=== PATIENT | male | born 1935 | race Caucasian/White ===

== ENCOUNTER 2017-06-07 13:43 | Inpatient (IN) | payer MEDICARE, OTHER ==
[~2017-06-07] VITALS: Ht 177.8 cm; Wt 104.6 kg
[~2017-06-07 13:43] MED LIST: CLOP75TA35 PO; FISH1200 PO; ISOS120T8 PO; MAGN250T29 PO; MULT-785 PO; OLME1TAB19 PO; PYRI50TA10 PO; RANI150C11 PO; UBID100C16 PO; ZOC40T PO
[2017-06-07 14:26] LABS: BASOPHILS % (AUTO) 0.4 % (0-1); EOSINOPHILS # (AUTO) 0.7 X10'3 (0-0.9); EOSINOPHILS % (AUTO) 7.1 % (0-6); HEMATOCRIT 40.3 % (42.0-52.0); LYMPHOCYTES # (AUTO) 1.7 X10'3 (1.1-4.8); LYMPHOCYTES % (AUTO) 18.3 % (21-51); MEAN CORPUSCULAR HEMOGLOBIN 30.7 PG (27.0-31.0); MEAN CORPUSCULAR HGB CONC 34.7 % (33.0-36.5); MEAN CORPUSCULAR VOLUME 88.4 FL (78-98); MEAN PLATELET VOLUME 6.8 FL (7.4-10.4); MONOCYTES # (AUTO) 0.7 X10'3 (0-0.9); MONOCYTES % (AUTO) 7.2 % (2-12); NEUTROPHILS # (AUTO) 6.2 X10'3 (1.8-7.7); PLATELET COUNT 292 X10'3 (140-440); RED BLOOD COUNT 4.56 X10'6 (4.70-6.10); RED CELL DISTRIBUTION WIDTH 12.9 % (11.5-14.5); WHITE BLOOD COUNT 9.3 X10'3 (4.5-11.0)
[2017-06-07 14:31] LABS: INR 0.9 INR; PROTHROMBIN TIME 9.8 SECONDS (9.0-12.0)
[2017-06-07 14:37] LABS: ALANINE AMINOTRANSFERASE 34 U/L (12-78); ALBUMIN 3.6 G/DL (3.4-5.0); ALKALINE PHOSPHATASE 64 IU/L (46-116); ANION GAP 7 (8-16); ASPARTATE AMINO TRANSFERASE 15 U/L (10-37); BILIRUBIN,TOTAL 0.4 MG/DL (0.1-1.0); BLOOD UREA NITROGEN 20 MG/DL (7-18); BUN/CREATININE RATIO 16.9 (5.4-32.0); CALCIUM 8.6 MG/DL (8.5-10.1); CHLORIDE 105 MMOL/L (99-107); CREATININE 1.18 MG/DL (0.60-1.10); POTASSIUM 4.1 MMOL/L (3.5-5.1); SODIUM 144 MMOL/L (135-145); TOTAL CARBON DIOXIDE 31.8 MMOL/L (24-32); TOTAL PROTEIN 7.2 G/DL (6.4-8.2); eGFR 59 ML/MIN
[2017-06-07 14:42] LABS: GLUCOSE 114 MG/DL (70-104)
[2017-06-07] MEDS ORDERED: famotidine/PF 10 mg/ml inj IV ONE (17:00)
[2017-06-07] MEDS ORDERED: pantoprazole 40 MG vial IV ONE (17:00)
[2017-06-07] MEDS ORDERED: magnesium 4gm in 100ml NS 100 ML IV PRN (17:15)
[2017-06-07] MEDS ORDERED: ondansetron/PF 4mg/2ml inj IV PRN (17:15)
[2017-06-07] MEDS ORDERED: HYDROcodone/acetaminophen 5mg/325mg tablet PO PRN (17:15)
[2017-06-07] MEDS ORDERED: magnesium 2GM in 50ml NS 50 ML IV PRN (17:15)
[2017-06-07] MEDS ORDERED: bisacodyl 10mg suppository rectal RC PRN (17:15)
[2017-06-07] MEDS ORDERED: acetaminophen 650mg rectal suppository RC PRN (17:15)
[2017-06-07] MEDS ORDERED: potassium Cl 40MEQ/NS 500ml 500 ML IV PRN ×2 (17:15)
[2017-06-07] MEDS ORDERED: HYDROcodone/acetaminophen 10/325mg tab PO PRN (17:15)
[2017-06-07] MEDS ORDERED: EZET10TA26 PO (18:28)
[2017-06-07] MEDS: pantoprazole 40MG/NS 100ML BAG 100 ML IV SCH (19:54)
[2017-06-07] MEDS: normal saline 1000ml 1,000 ML IV SCH (19:54)
[2017-06-07 20:00] VITALS: BP 129/53
[2017-06-07] MEDS ORDERED: pantoprazole 40MG/NS 100ML BAG 100 ML IV SCH (21:00)
[2017-06-08] VITALS (13 sets, daily range): BP systolic 109–161; BP diastolic 51–83
[2017-06-08] MEDS: pantoprazole 40MG/NS 100ML BAG 100 ML IV SCH ×3 (00:58→11:00)
[2017-06-08 05:21] LABS: BASOPHILS # (AUTO) 0.1 X10'3 (0-0.2); BASOPHILS % (AUTO) 0.6 % (0-1); EOSINOPHILS # (AUTO) 0.7 X10'3 (0-0.9); HEMATOCRIT 35.2 % (42.0-52.0); HEMOGLOBIN 12.6 g/dl (14.0-17.9); LYMPHOCYTES # (AUTO) 1.9 X10'3 (1.1-4.8); LYMPHOCYTES % (AUTO) 22.1 % (21-51); MEAN CORPUSCULAR HEMOGLOBIN 32.9 PG (27.0-31.0); MEAN CORPUSCULAR HGB CONC 35.9 % (33.0-36.5); MEAN CORPUSCULAR VOLUME 91.6 FL (78-98); MONOCYTES # (AUTO) 0.7 X10'3 (0-0.9); MONOCYTES % (AUTO) 7.9 % (2-12); NEUTROPHILS # (AUTO) 5.4 X10'3 (1.8-7.7); NEUTROPHILS % (AUTO) 61.4 % (42-75); PLATELET COUNT 254 X10'3 (140-440); RED BLOOD COUNT 3.84 X10'6 (4.70-6.10); RED CELL DISTRIBUTION WIDTH 13.1 % (11.5-14.5); WHITE BLOOD COUNT 8.8 X10'3 (4.5-11.0)
[2017-06-08] MEDS: normal saline 1000ml 1,000 ML IV SCH ×2 (05:58→15:45)
[2017-06-08 06:01] LABS: ALANINE AMINOTRANSFERASE 34 U/L (12-78); ALBUMIN/GLOBULIN RATIO 0.9 (1.1-1.5); ALKALINE PHOSPHATASE 53 IU/L (46-116); ANION GAP 9 (8-16); ASPARTATE AMINO TRANSFERASE 21 U/L (10-37); BILIRUBIN,TOTAL 0.4 MG/DL (0.1-1.0); BLOOD UREA NITROGEN 19 MG/DL (7-18); BUN/CREATININE RATIO 15.8 (5.4-32.0); CALCIUM 8.2 MG/DL (8.5-10.1); CHLORIDE 108 MMOL/L (99-107); CHOL/HDL RATIO 3.6 (0.00-4.99); CHOLESTEROL 128 MG/DL (0-200); GLUCOSE 104 MG/DL (70-104); HDL CHOLESTEROL 36 MG/DL (35-60); LDL CHOLESTEROL 67 MG/DL (50-100); MAGNESIUM 2.2 MG/DL (1.5-2.4); POTASSIUM 4.5 MMOL/L (3.5-5.1); SODIUM 145 MMOL/L (135-145); TOTAL CARBON DIOXIDE 27.7 MMOL/L (24-32); TOTAL PROTEIN 6.2 G/DL (6.4-8.2); TRIGLYCERIDES 162 MG/DL (20-135); eGFR 58 ML/MIN
[2017-06-08 06:50] LABS: OCCULT BLOOD STOOL POSITIVE (Neg)
[2017-06-08] MEDS ORDERED: K and/or MAG REPLACEMENT MC SCH (08:00)
[2017-06-08] MEDS ORDERED: normal saline 1000ml 1,000 ML IV SCH (11:34)
[2017-06-08] MEDS ORDERED: fentaNYL/PF 50MCG/1 ML 2ML syringe IV PRN (11:35)
[2017-06-08] MEDS ORDERED: LIDOcaine Viscous 15ml cup PO ONE (11:35)
[2017-06-08] MEDS ORDERED: MIDAZolam 1mg/ml 10ml vial IV PRN (11:35)
[2017-06-08] MEDS ORDERED: simethicone 40mg/0.6ml oral drops 30ml MC ONE (11:35)
[2017-06-08] MEDS ORDERED: fentaNYL/PF 50MCG/1 ML 2ML syringe ONE (12:09)
[2017-06-08] MEDS ORDERED: MIDAZolam 1mg/ml 10ml vial ONE (12:09)
[2017-06-08] MEDS ORDERED: LIDOcaine Viscous 15ml cup ONE (12:09)
[2017-06-08] MEDS ORDERED: PANT-47 PO (16:17)
== END 2017-06-08 17:00 | disposition home or self-care (01) | DRG 379 ==
LOC: ER 13:43 → ED HOLD 17:22 → SUR 3N 18:59
PROVIDERS: ADMIT Family Medicine; ATTEND Family Medicine
PROC: 0DB68ZX Excision of Stomach, Via Natural or Artificial Opening Endoscopic, Diagnostic (ICD-10-PCS; principal; 2017-06-08)
DX: K29.71 Gastritis, unspecified, with bleeding (principal); E66.9 Obesity, unspecified; E78.00 Pure hypercholesterolemia, unspecified; K25.4 Chronic or unspecified gastric ulcer with hemorrhage; E78.5 Hyperlipidemia, unspecified; I10 Essential (primary) hypertension; M19.90 Unspecified osteoarthritis, unspecified site; I25.10 Atherosclerotic heart disease of native coronary artery without angina pectoris; K29.80 Duodenitis without bleeding; K20.9 Esophagitis, unspecified; K31.4 Gastric diverticulum; K57.90 Diverticulosis of intestine, part unspecified, without perforation or abscess without bleeding; Z96.653 Presence of artificial knee joint, bilateral; Z95.5 Presence of coronary angioplasty implant and graft; Z90.49 Acquired absence of other specified parts of digestive tract; Z79.899 Other long term (current) drug therapy; Z88.2 Allergy status to sulfonamides; Z88.8 Allergy status to other drugs, medicaments and biological substances; Z87.11 Personal history of peptic ulcer disease; Z87.891 Personal history of nicotine dependence; Z80.8 Family history of malignant neoplasm of other organs or systems; Z68.33 Body mass index [BMI] 33.0-33.9, adult
CPT/HCPCS: 36415; 43239; 74176; 80053; 80061; 82272; 83735; 85025; 85610; 87070; 99285; A4620; C9113; G0500; J2250; J3010; J3490; J7030

== ENCOUNTER 2018-05-22 07:28 | Day surgery (SDC) | payer MEDICARE, OTHER ==
[~2018-05-22] VITALS: Ht 177.8 cm; Wt 107.5 kg
[~2018-05-22 07:28] MED LIST changes: -CLOP75TA35 PO; +EZET10TA26 PO; -FISH1200 PO; +HYDR-4383 PO; -ISOS120T8 PO; -MAGN250T29 PO; -MULT-785 PO; -OLME1TAB19 PO; +OLME1TAB42 PO; +OMEG-166 PO; -PYRI50TA10 PO; -RANI150C11 PO; -UBID100C16 PO
[2018-05-22 07:51] VITALS: BP 123/74
[2018-05-22] MEDS ORDERED: normal saline 1000ml 1,000 ML IV SCH (08:00)
[2018-05-22] MEDS ORDERED: MAGNESIUM (08:09)
[2018-05-22] MEDS ORDERED: CO Q-10 (08:09)
[2018-05-22] MEDS ORDERED: MULTIVITAMIN (08:09)
[2018-05-22] MEDS ORDERED: benicar (08:09)
[2018-05-22] MEDS ORDERED: zetia (08:09)
[2018-05-22] MEDS ORDERED: vitamin d3 (08:09)
[2018-05-22] MEDS ORDERED: VITAMIN B12 (08:09)
[2018-05-22] MEDS ORDERED: midazolam 2 mg/2 ml injection IV PRN (08:50)
[2018-05-22] MEDS ORDERED: LIDOcaine 1%/PF 5ML 10 MG/ML VIAL SQ ONE (08:50)
[2018-05-22] MEDS ORDERED: heparin 1,000 UNITS/NS 500ml 500 ML ICATH ONE (08:50)
[2018-05-22] MEDS ORDERED: fentaNYL/PF 50MCG/1 ML 2ML syringe IV PRN (08:50)
[2018-05-22 09:03] LABS: BASOPHILS # (AUTO) 0.2 X10'3 (0-0.2); BASOPHILS % (AUTO) 2.3 % (0-1); EOSINOPHILS # (AUTO) 0.7 X10'3 (0-0.9); EOSINOPHILS % (AUTO) 8.8 % (0-6); HEMATOCRIT 42.4 % (42.0-52.0); HEMOGLOBIN 14.6 g/dl (14.0-17.9); LYMPHOCYTES % (AUTO) 24.6 % (21-51); MEAN CORPUSCULAR HEMOGLOBIN 30.9 PG (27.0-31.0); MEAN CORPUSCULAR HGB CONC 34.4 % (33.0-36.5); MEAN CORPUSCULAR VOLUME 89.8 FL (78-98); MEAN PLATELET VOLUME 7.1 FL (7.4-10.4); MONOCYTES # (AUTO) 0.7 X10'3 (0-0.9); MONOCYTES % (AUTO) 8.3 % (2-12); NEUTROPHILS # (AUTO) 4.4 X10'3 (1.8-7.7); PLATELET COUNT 235 X10'3 (140-440); RED BLOOD COUNT 4.72 X10'6 (4.70-6.10); RED CELL DISTRIBUTION WIDTH 13.1 % (11.5-14.5); WHITE BLOOD COUNT 7.9 X10'3 (4.5-11.0)
[2018-05-22 09:12] LABS: ALBUMIN 3.9 G/DL (3.4-5.0); ANION GAP 11 (8-16); BLOOD UREA NITROGEN 32 MG/DL (7-18); CALCIUM 8.8 MG/DL (8.5-10.1); CHLORIDE 105 MMOL/L (99-107); CREATININE 1.23 MG/DL (0.60-1.10); GLUCOSE 111 MG/DL (70-104); POTASSIUM 4.3 MMOL/L (3.5-5.1); SODIUM 142 MMOL/L (135-145); TOTAL CARBON DIOXIDE 25.7 MMOL/L (24-32); eGFR 56 ML/MIN
[2018-05-22 09:35] LABS: INR 0.9 INR; PROTHROMBIN TIME 9.4 SECONDS (9.0-12.0)
== END 2018-05-22 09:10 | disposition home or self-care (01) ==
LOC: SSTAY O 07:28
PROVIDERS: ATTEND Radiology Diagnostic Radiology
DX: I70.211 Atherosclerosis of native arteries of extremities with intermittent claudication, right leg (principal); Z53.8 Procedure and treatment not carried out for other reasons; I10 Essential (primary) hypertension; E78.5 Hyperlipidemia, unspecified; I25.10 Atherosclerotic heart disease of native coronary artery without angina pectoris; K21.9 Gastro-esophageal reflux disease without esophagitis; M19.90 Unspecified osteoarthritis, unspecified site; N40.0 Benign prostatic hyperplasia without lower urinary tract symptoms; H91.8X3 Other specified hearing loss, bilateral; Z98.41 Cataract extraction status, right eye; Z98.42 Cataract extraction status, left eye; Z87.11 Personal history of peptic ulcer disease; Z90.49 Acquired absence of other specified parts of digestive tract; Z95.5 Presence of coronary angioplasty implant and graft; Z79.01 Long term (current) use of anticoagulants; Z96.653 Presence of artificial knee joint, bilateral; Z87.891 Personal history of nicotine dependence; Z88.2 Allergy status to sulfonamides; Z79.891 Long term (current) use of opiate analgesic; Z79.82 Long term (current) use of aspirin; Z88.8 Allergy status to other drugs, medicaments and biological substances; Z98.890 Other specified postprocedural states; Z79.899 Other long term (current) drug therapy; Z82.0 Family history of epilepsy and other diseases of the nervous system; Z82.49 Family history of ischemic heart disease and other diseases of the circulatory system; Z80.8 Family history of malignant neoplasm of other organs or systems
CPT/HCPCS: 36415; 80048; 85025; 85610; J7030

== ENCOUNTER 2018-07-02 08:47 | Inpatient (IN) | payer MEDICARE, OTHER | END 2018-07-04 15:59 | disposition home or self-care (01) | LOC: PAS IN 08:47 → SUR 3N 07-03 14:17 → ICU 2S 16:01 | PROC: 041L0KL Bypass Left Femoral Artery to Popliteal Artery with Nonautologous Tissue Substitute, Open Approach (ICD-10-PCS; principal; 2018-07-02 11:31) | DX: I70.212 Atherosclerosis of native arteries of extremities with intermittent claudication, left leg (principal); Z95.5 Presence of coronary angioplasty implant and graft; Z96.653 Presence of artificial knee joint, bilateral ==

== ENCOUNTER 2021-01-25 05:56 | Day surgery (SDC) | payer MEDICARE, OTHER ==
[2021-01-23 12:48] LABS: BASOPHILS # (AUTO) 0.1 X10'3 (0-0.2); BASOPHILS % (AUTO) 0.6 % (0-1); EOSINOPHILS # (AUTO) 0.4 X10'3 (0-0.9); EOSINOPHILS % (AUTO) 4.6 % (0-6); HEMOGLOBIN 13.4 g/dl (14.0-17.9); LYMPHOCYTES # (AUTO) 1.8 X10'3 (1.1-4.8); LYMPHOCYTES % (AUTO) 19.5 % (21-51); MEAN CORPUSCULAR HEMOGLOBIN 31.1 PG (27.0-31.0); MEAN CORPUSCULAR HGB CONC 34.3 g/dL (33.0-36.5); MEAN CORPUSCULAR VOLUME 90.9 FL (78-98); MONOCYTES # (AUTO) 0.8 X10'3 (0-0.9); MONOCYTES % (AUTO) 8.6 % (2-12); NEUTROPHILS # (AUTO) 6.1 X10'3 (1.8-7.7); NEUTROPHILS % (AUTO) 66.7 % (42-75); PLATELET COUNT 208 X10'3 (140-440); RED BLOOD COUNT 4.29 X10'6 (4.70-6.10); WHITE BLOOD COUNT 9.2 X10'3 (4.5-11.0)
[2021-01-23 13:01] LABS: ANION GAP 8 (8-16); BLOOD UREA NITROGEN 30 MG/DL (7-18); BUN/CREATININE RATIO 23.8 (5.4-32.0); CALCIUM 8.9 MG/DL (8.5-10.1); CHLORIDE 106 MMOL/L (99-107); CREATININE 1.26 MG/DL (0.60-1.10); GLUCOSE 100 MG/DL (70-104); PARTIAL THROMBOPLASTIN TIME 26 SECONDS (22-32); POTASSIUM 4.4 MMOL/L (3.5-5.1); SODIUM 141 MMOL/L (135-145); TOTAL CARBON DIOXIDE 26.9 MMOL/L (24-32); eGFR 54 ML/MIN
[~2021-01-25] VITALS: Ht 177.8 cm; Wt 107.0 kg
[2021-01-25] VITALS (19 sets, daily range): BP systolic 99–182; BP diastolic 28–91
[~2021-01-25 05:56] MED LIST changes: +ASPI-1265 PO; +CO Q-10; -EZET10TA26 PO; +EZET10TA48 PO; -HYDR-4383 PO; +MAGNESIUM; +MULT-620 PO; +OLME1TAB21 PO; -OLME1TAB42 PO; +VITAMIN B12; +vitamin d3
[2021-01-25] MEDS ORDERED: LIDOcaine/PRILOcaine 5gm cream TP ONE (06:20)
[2021-01-25] MEDS ORDERED: normal saline 1,000 ML IV SCH (06:20)
[2021-01-25] MEDS ORDERED: LORazepam 0.5 MG tablet PO PRN (06:20)
[2021-01-25] MEDS ORDERED: diphenhydrAMINE 25mg capsule PO PRN (06:20)
[2021-01-25] MEDS ORDERED: acetylcysteine 200 MG/ml 4ml vial PO PRN (06:45)
[2021-01-25] MEDS ORDERED: sodium bicarbonate (8.4%) inj. 150 ML in dextrose 5%-water 1,000 ML IV ONE (06:45)
[2021-01-25] MEDS ORDERED: OLME1TAB24 PO (06:49)
[2021-01-25] MEDS ORDERED: POTA99TA21 PO (06:49)
[2021-01-25] MEDS ORDERED: MAGN200T PO (06:49)
[2021-01-25] MEDS ORDERED: PYRI-3 PO (06:49)
[2021-01-25] MEDS ORDERED: ROSU40TA PO (06:49)
[2021-01-25] MEDS ORDERED: CHOL200074 PO (06:49)
[2021-01-25] MEDS ORDERED: GLUC-95 PO (06:49)
[2021-01-25] MEDS ORDERED: UBID300C PO (06:49)
[2021-01-25] MEDS ORDERED: midazolam 1 mg/ML 2ml injection ONE (07:33)
[2021-01-25] MEDS ORDERED: verapamil 2.5 mg/ml inj IV ONE (07:33)
[2021-01-25] MEDS ORDERED: nitroGLYCERIN-Tridil 50MG/D5W 250 ML IV ONE (07:33)
[2021-01-25] MEDS ORDERED: fentaNYL/PF 50MCG/1 ML 2ML syringe ONE (07:33)
[2021-01-25] MEDS ORDERED: heparin 1,000unit/ml 10ml vial 10 ML ONE ×2 (07:34→09:08)
[2021-01-25] MEDS ORDERED: LIDOcaine 1% (10mg/ml)w/preservative injection 20ml MDV ONE ×2 (07:34→08:43)
[2021-01-25] MEDS ORDERED: iohexol 350 MG/ML 50ML vial IV ONE (07:34)
[2021-01-25] MEDS ORDERED: iohexol 350MG/ML 100ml bottle IV ONE ×3 (07:34→09:15)
[2021-01-25] MEDS ORDERED: heparin 25,000 UNIT/250ml bag 250 ML IV ONE (09:00)
[2021-01-25 09:20] LABS: ISTAT HGB ART 11.9 g/dl (14.0-18.0); ISTAT Hct ART 35 %PCV (42-52); ISTAT O2 SATURATION ARTERIAL 97 % (95-98); ISTAT SOURCE ART
[2021-01-25] MEDS ORDERED: clopidogrel 300mg tablet ONE (09:53)
[2021-01-25] MEDS ORDERED: aspirin 81mg tab.chew PO ONE (10:50)
--- NOTE | 2021-01-25 13:45 | NUR ---
Sheath removed and manual pressure held for 10 minutes by Teresa OSORIO. Hemostasis achieved. FemoStop placed as per MD order. Addendum: 01/25/21 at 1936 by Jt Shirley RN Amended: Links added.
[2021-01-25 16:24] LABS: ISTAT Hct MIX 35 %PCV (42-52); ISTAT O2 SATURATION MIX VENOUS 60 % (60-80); ISTAT SOURCE VEN
== END 2021-01-25 20:10 | disposition home or self-care (01) ==
LOC: SSTAY O 05:56
PROVIDERS: ATTEND Internal Medicine Cardiovascular Disease
DX: R94.39 Abnormal result of other cardiovascular function study (principal); I25.10 Atherosclerotic heart disease of native coronary artery without angina pectoris; I10 Essential (primary) hypertension; I35.0 Nonrheumatic aortic (valve) stenosis; E78.49 Other hyperlipidemia; J44.9 Chronic obstructive pulmonary disease, unspecified; M19.90 Unspecified osteoarthritis, unspecified site; K21.9 Gastro-esophageal reflux disease without esophagitis; N40.0 Benign prostatic hyperplasia without lower urinary tract symptoms; Z79.899 Other long term (current) drug therapy; Z79.01 Long term (current) use of anticoagulants; Z79.82 Long term (current) use of aspirin; Z90.49 Acquired absence of other specified parts of digestive tract; Z98.890 Other specified postprocedural states; Z88.8 Allergy status to other drugs, medicaments and biological substances; Z88.2 Allergy status to sulfonamides
CPT/HCPCS: 36415; 76937; 80048; 82803; 85014; 85025; 85347; 85610; 85730; 92920; 93005; 93460; 99152; 99153; C1725; C1751; C1769; C1874; C1894; C9600; J1644; J2001; J2250; J3010; J7030; J7040; Q0163; Q9967; A4620; A6258; A6449; J3490

== ENCOUNTER 2021-11-08 11:13 | Emergency (ER) | payer MEDICARE, OTHER ==
[~2021-11-08] VITALS: Ht 177.8 cm; Wt 110.0 kg
[~2021-11-08 11:13] MED LIST changes: +CHOL200074 PO; -CO Q-10; -EZET10TA48 PO; +GLUC-95 PO; +MAGN200T PO; -MAGNESIUM; -OLME1TAB21 PO; +OLME1TAB24 PO; +POTA99TA26 PO; +PYRI-3 PO; +ROSU40TA PO; +UBID300C PO; -VITAMIN B12; -ZOC40T PO; -vitamin d3
[2021-11-08 13:23] LABS: BASOPHILS # (AUTO) 0.1 X10'3 (0-0.2); BASOPHILS % (AUTO) 0.6 % (0-1); EOSINOPHILS # (AUTO) 0.3 X10'3 (0-0.9); EOSINOPHILS % (AUTO) 3.2 % (0-6); HEMATOCRIT 34.3 % (42.0-52.0); HEMOGLOBIN 11.8 g/dl (14.0-17.9); LYMPHOCYTES # (AUTO) 1.6 X10'3 (1.1-4.8); LYMPHOCYTES % (AUTO) 17.1 % (21-51); MEAN CORPUSCULAR HEMOGLOBIN 30.3 PG (27.0-31.0); MEAN CORPUSCULAR HGB CONC 34.3 g/dL (33.0-36.5); MEAN CORPUSCULAR VOLUME 88.2 FL (78-98); MEAN PLATELET VOLUME 6.6 FL (7.4-10.4); MONOCYTES # (AUTO) 0.8 X10'3 (0-0.9); MONOCYTES % (AUTO) 8.7 % (2-12); NEUTROPHILS # (AUTO) 6.4 X10'3 (1.8-7.7); NEUTROPHILS % (AUTO) 70.4 % (42-75); PLATELET COUNT 271 X10'3 (140-440); RED BLOOD COUNT 3.89 X10'6 (4.70-6.10); RED CELL DISTRIBUTION WIDTH 14.4 % (11.5-14.5); WHITE BLOOD COUNT 9.2 X10'3 (4.5-11.0)
[2021-11-08] MEDS ORDERED: albuterol 2.5 MG/3 ML nebule NEB ONE (13:25)
[2021-11-08 13:38] VITALS: BP 99/69
[2021-11-08 13:41] LABS: ALANINE AMINOTRANSFERASE 30 U/L (12-78); ALBUMIN 3.6 G/DL (3.4-5.0); ALKALINE PHOSPHATASE 75 IU/L (46-116); ANION GAP 6 (8-16); ASPARTATE AMINO TRANSFERASE 29 U/L (10-37); BILIRUBIN,TOTAL 0.9 MG/DL (0.1-1.0); BLOOD UREA NITROGEN 26 MG/DL (7-18); BUN/CREATININE RATIO 22.8 (5.4-32.0); CALCIUM 8.9 MG/DL (8.5-10.1); CHLORIDE 103 MMOL/L (99-107); CREATININE 1.14 MG/DL (0.60-1.10); GLUCOSE 93 MG/DL (70-104); POTASSIUM 4.8 MMOL/L (3.5-5.1); SODIUM 138 MMOL/L (135-145); TOTAL CARBON DIOXIDE 28.9 MMOL/L (24-32); TOTAL PROTEIN 7.2 G/DL (6.4-8.2); eGFR 61 ML/MIN
[2021-11-08] MEDS ORDERED: furosemide 20MG tablet PO ONE (14:30)
[2021-11-08] MEDS ORDERED: AZIT250T82 PO (15:04)
[2021-11-08] MEDS ORDERED: ALBU8.5H17 IH (15:04)
[2021-11-08] MEDS ORDERED: FURO-150 PO (15:04)
== END 2021-11-08 15:52 | disposition home or self-care (01) ==
LOC: ER 11:13
DX: R06.02 Shortness of breath (principal); Z20.822 Contact with and (suspected) exposure to COVID-19; I11.0 Hypertensive heart disease with heart failure; E78.00 Pure hypercholesterolemia, unspecified; Z88.2 Allergy status to sulfonamides; Z88.8 Allergy status to other drugs, medicaments and biological substances; Z79.899 Other long term (current) drug therapy; Z79.82 Long term (current) use of aspirin; Z98.890 Other specified postprocedural states
CPT/HCPCS: 36415; 71045; 80053; 83880; 85025; 87502; 87503; 87635; 93005; 99285; C9803; 94760

== ENCOUNTER 2021-11-14 10:15 | Inpatient (IN) | payer MEDICARE, OTHER ==
[~2021-11-14] VITALS: Ht 177.8 cm; Wt 109.9 kg
[~2021-11-14 10:15] MED LIST changes: +ALBU8.5H17 IH; +AZIT250T82 PO; +FURO-150 PO
--- NOTE | 2021-11-14 10:35 | NUR ---
moved to ed 9 at this time. placed onto oxygen 2lpm
[2021-11-14 10:44] LABS: BASOPHILS # (AUTO) 0.1 X10'3 (0-0.2); BASOPHILS % (AUTO) 0.5 % (0-1); EOSINOPHILS # (AUTO) 0.2 X10'3 (0-0.9); HEMATOCRIT 34.3 % (42.0-52.0); HEMOGLOBIN 11.7 g/dl (14.0-17.9); LYMPHOCYTES # (AUTO) 1.3 X10'3 (1.1-4.8); LYMPHOCYTES % (AUTO) 12.5 % (21-51); MEAN CORPUSCULAR HEMOGLOBIN 30.7 PG (27.0-31.0); MEAN CORPUSCULAR HGB CONC 34.2 g/dL (33.0-36.5); MEAN CORPUSCULAR VOLUME 89.7 FL (78-98); MEAN PLATELET VOLUME 6.3 FL (7.4-10.4); MONOCYTES # (AUTO) 0.4 X10'3 (0-0.9); MONOCYTES % (AUTO) 3.9 % (2-12); NEUTROPHILS # (AUTO) 8.1 X10'3 (1.8-7.7); NEUTROPHILS % (AUTO) 81.1 % (42-75); PLATELET COUNT 293 X10'3 (140-440); RED BLOOD COUNT 3.83 X10'6 (4.70-6.10); RED CELL DISTRIBUTION WIDTH 14.8 % (11.5-14.5)
[2021-11-14 10:50] LABS: D-DIMER 2.41 MG/L FEU (0-0.50)
[2021-11-14 11:32] LABS: ALANINE AMINOTRANSFERASE 35 U/L (12-78); ALBUMIN 3.4 G/DL (3.4-5.0); ALKALINE PHOSPHATASE 62 IU/L (46-116); ANION GAP 7 (8-16); ASPARTATE AMINO TRANSFERASE 33 U/L (10-37); BILIRUBIN,TOTAL 0.8 MG/DL (0.1-1.0); BLOOD UREA NITROGEN 30 MG/DL (7-18); BUN/CREATININE RATIO 22.2 (5.4-32.0); CALCIUM 8.4 MG/DL (8.5-10.1); CHLORIDE 106 MMOL/L (99-107); CREATININE 1.35 MG/DL (0.60-1.10); GLUCOSE 195 MG/DL (70-104); POTASSIUM 4.9 MMOL/L (3.5-5.1); SODIUM 140 MMOL/L (135-145); TOTAL CARBON DIOXIDE 27.3 MMOL/L (24-32); TOTAL PROTEIN 6.9 G/DL (6.4-8.2); eGFR 50 ML/MIN
[2021-11-14] MEDS ORDERED: furosemide 10 MG/1 ML 10ml inj IV ONE (11:55)
--- NOTE | 2021-11-14 12:54 | NUR ---
patient became increasingly anxious and wanted to get off of bed and onto chair. was moved onto chair at bedside for comfort, stated some relief with increased dyspnea while on bed. taylornet remains on oxygen
[2021-11-14] MEDS ORDERED: ondansetron/PF 4mg/2ml inj IV PRN (14:15)
[2021-11-14] MEDS ORDERED: magnesium hydroxide 30ml (MOM) UD suspension PO PRN (14:15)
[2021-11-14] MEDS ORDERED: mag hydrox/Alum hydrox/simeth 30ml oral suspension PO PRN (14:15)
[2021-11-14] MEDS ORDERED: acetaminophen 325mg tablet PO PRN (14:15)
--- NOTE | 2021-11-14 14:42 | NUR ---
troponin 132 at this time. paged at this time
[2021-11-14] MEDS ORDERED: CLOP75TA34 PO (14:48)
[2021-11-14] MEDS ORDERED: ALBU17AE26 PO (14:51)
--- NOTE | 2021-11-14 14:58 | NUR ---
covid swab sent to lab at this time
[2021-11-14] MEDS ORDERED: albuterol 2.5 MG/3 ML nebule NEB PRN (16:20)
[2021-11-14] MEDS: docusate sod 100mg capsule PO SCH (21:45)
[2021-11-14] MEDS: OMEGA-3/DHA/EPA/FISH OIL 1 EACH CAPSULE.DR PO SCH (21:45)
--- NOTE | 2021-11-14 23:48 | NUR ---
report called to floor jocy sol to floor with tech
[2021-11-15] VITALS (13 sets, daily range): BP systolic 83–125; BP diastolic 38–60
--- NOTE | 2021-11-15 06:43 | NUR ---
Patient in room PCU 3013. I have received report from JO Roberts and had the opportunity to ask questions and assume patient care.
[2021-11-15 06:47] LABS: BASOPHILS # (AUTO) 0.1 X10'3 (0-0.2); BASOPHILS % (AUTO) 0.7 % (0-1); EOSINOPHILS # (AUTO) 0.2 X10'3 (0-0.9); HEMATOCRIT 33.5 % (42.0-52.0); HEMOGLOBIN 11.5 g/dl (14.0-17.9); LYMPHOCYTES # (AUTO) 1.3 X10'3 (1.1-4.8); LYMPHOCYTES % (AUTO) 16.2 % (21-51); MEAN CORPUSCULAR HEMOGLOBIN 31.1 PG (27.0-31.0); MEAN CORPUSCULAR HGB CONC 34.4 g/dL (33.0-36.5); MEAN CORPUSCULAR VOLUME 90.4 FL (78-98); MEAN PLATELET VOLUME 6.2 FL (7.4-10.4); MONOCYTES # (AUTO) 0.6 X10'3 (0-0.9); MONOCYTES % (AUTO) 7.2 % (2-12); NEUTROPHILS % (AUTO) 72.9 % (42-75); PLATELET COUNT 272 X10'3 (140-440); RED BLOOD COUNT 3.71 X10'6 (4.70-6.10); RED CELL DISTRIBUTION WIDTH 14.6 % (11.5-14.5); WHITE BLOOD COUNT 8.3 X10'3 (4.5-11.0)
[2021-11-15 07:00] LABS: ALBUMIN 3.5 G/DL (3.4-5.0); ANION GAP 9 (8-16); BLOOD UREA NITROGEN 26 MG/DL (7-18); BUN/CREATININE RATIO 22.6 (5.4-32.0); CALCIUM 8.9 MG/DL (8.5-10.1); CHLORIDE 103 MMOL/L (99-107); CREATININE 1.15 MG/DL (0.60-1.10); GLUCOSE 114 MG/DL (70-104); POTASSIUM 4.3 MMOL/L (3.5-5.1); SODIUM 140 MMOL/L (135-145); TOTAL CARBON DIOXIDE 27.8 MMOL/L (24-32); eGFR 60 ML/MIN
[2021-11-15] MEDS ORDERED: aspirin 81mg, enteric-coated 1 TAB TABLET.DR PO SCH (08:00)
[2021-11-15] MEDS ORDERED: clopidogrel 75mg tablet PO SCH (08:00)
[2021-11-15] MEDS ORDERED: CHONDR SU A NA PO SCH (08:00)
[2021-11-15] MEDS ORDERED: furosemide 20MG tablet PO SCH (08:00)
[2021-11-15] MEDS ORDERED: UBIDECARENONE PO SCH (08:00)
[2021-11-15] MEDS ORDERED: atorvastatin 20mg tablet PO SCH (08:00)
[2021-11-15] MEDS ORDERED: GLUCOSAMINE HCL PO SCH (08:00)
[2021-11-15] MEDS: docusate sod 100mg capsule PO SCH ×2 (08:14→20:21)
[2021-11-15] MEDS: OMEGA-3/DHA/EPA/FISH OIL 1 EACH CAPSULE.DR PO SCH ×2 (08:14→20:22)
[2021-11-15] MEDS: HYDROchlorothiazide 25mg tablet PO SCH (08:14)
[2021-11-15] MEDS: magnesium oxide 400mg tablet PO SCH (08:14)
[2021-11-15] MEDS: losartan 50mg tablet PO SCH (08:14)
[2021-11-15] MEDS: multivitamins, therapeutics tablet PO SCH (08:14)
[2021-11-15] MEDS: pyridoxine 50mg tablet PO SCH (08:15)
[2021-11-15] MEDS: cholecalciferol (vitamin D3) 1,000 unit (25mcg) tablet PO SCH (08:15)
[2021-11-15] MEDS ORDERED: midazolam 1 mg/ML 2ml injection ONE ×2 (15:08→17:19)
[2021-11-15] MEDS ORDERED: verapamil 2.5 mg/ml inj IV ONE (15:08)
[2021-11-15] MEDS ORDERED: fentaNYL/PF 50MCG/1 ML 2ML syringe ONE (15:08)
[2021-11-15] MEDS ORDERED: LIDOcaine 1% (10mg/ml) 2ml vial ONE (15:08)
[2021-11-15] MEDS ORDERED: heparin 1,000unit/ml 10ml vial 10 ML ONE (15:08)
[2021-11-15] MEDS ORDERED: nitroGLYCERIN-Tridil 50MG/D5W 250 ML IV ONE (15:08)
[2021-11-15] MEDS ORDERED: iohexol 350MG/ML 100ml bottle IV ONE ×2 (15:09→17:07)
--- NOTE | 2021-11-15 15:50 | NUR ---
pt to director labor standards
[2021-11-15] MEDS ORDERED: LIDOcaine 1% 30ml preserv. free vial ONE (16:11)
[2021-11-15] MEDS ORDERED: HYDROmorphone 1 mg/ml syringe ONE (17:01)
[2021-11-15] MEDS ORDERED: DOBUTamine-DoBUTrex 500mg/D5W 250 ML IV ONE (17:32)
[2021-11-15] MEDS ORDERED: furosemide 40mg/4ml inj ONE ×2 (17:40→18:10)
--- NOTE | 2021-11-15 18:18 | NUR ---
Problems reprioritized. Patient report given, questions answered & plan of care reviewed with JO Roberts.
[2021-11-15] MEDS: aspirin 81mg, enteric-coated 1 TAB TABLET.DR PO SCH (20:22)
[2021-11-15] MEDS: atorvastatin 20mg tablet PO SCH (20:23)
[2021-11-15] MEDS ORDERED: HYDROcodone/acetaminophen 5mg/325mg tablet PO PRN (21:45)
[2021-11-16] VITALS (16 sets, daily range): BP systolic 73–136; BP diastolic 40–116
[2021-11-16] MEDS ORDERED: magnesium 4gm in 100ml NS 100 ML IV PRN (00:10)
[2021-11-16] MEDS ORDERED: POTASSIUM BICARB 20meq eff tab 20 MEQ TABLET.EFF PO PRN ×2 (00:10)
[2021-11-16] MEDS ORDERED: potassium CL 10mEq/100ml bag 100 ML IV PRN (00:10)
[2021-11-16] MEDS ORDERED: cyclobenzaprine 10mg tablet PO PRN (00:10)
[2021-11-16] MEDS ORDERED: acetaminophen 325mg tablet PO PRN ×2 (00:10)
[2021-11-16] MEDS ORDERED: magnesium hydroxide 30ml (MOM) UD suspension PO PRN (00:10)
[2021-11-16] MEDS ORDERED: magnesium Cl slow-release 64mg tablet PO PRN (00:10)
[2021-11-16] MEDS: DOBUTamine-DoBUTrex 500mg/D5W 250 ML IV SCH ×2 (00:10→08:15)
[2021-11-16] MEDS ORDERED: OXAZEpam 15mg capsule PO PRN (00:10)
[2021-11-16] MEDS ORDERED: HYDROcodone/acetaminophen 10/325mg tab PO PRN ×2 (00:10)
[2021-11-16] MEDS ORDERED: magnesium 2GM in 50ml NS 50 ML IV PRN (00:10)
--- NOTE | 2021-11-16 00:25 | NUR ---
PT HAD B/P OF 87/46 MD ENG WAS NOTIFIED ,NO NEW ORDERS AT THIS TIME
--- NOTE | 2021-11-16 06:51 | NUR ---
Patient in room PCU 3013. I have received report from JO Roberts and had the opportunity to ask questions and assume patient care.
[2021-11-16 07:04] LABS: BASOPHILS % (AUTO) 0.3 % (0-1); EOSINOPHILS # (AUTO) 0.1 X10'3 (0-0.9); EOSINOPHILS % (AUTO) 0.9 % (0-6); HEMATOCRIT 30.4 % (42.0-52.0); HEMOGLOBIN 10.4 g/dl (14.0-17.9); LYMPHOCYTES # (AUTO) 0.9 X10'3 (1.1-4.8); LYMPHOCYTES % (AUTO) 8.6 % (21-51); MEAN CORPUSCULAR HEMOGLOBIN 31.1 PG (27.0-31.0); MEAN CORPUSCULAR HGB CONC 34.1 g/dL (33.0-36.5); MEAN CORPUSCULAR VOLUME 91.3 FL (78-98); MEAN PLATELET VOLUME 6.4 FL (7.4-10.4); MONOCYTES # (AUTO) 0.9 X10'3 (0-0.9); MONOCYTES % (AUTO) 7.9 % (2-12); NEUTROPHILS % (AUTO) 82.3 % (42-75); PLATELET COUNT 234 X10'3 (140-440); RED BLOOD COUNT 3.33 X10'6 (4.70-6.10); RED CELL DISTRIBUTION WIDTH 15.1 % (11.5-14.5)
[2021-11-16 07:16] LABS: ALBUMIN 3.2 G/DL (3.4-5.0); ANION GAP 9 (8-16); BLOOD UREA NITROGEN 34 MG/DL (7-18); CALCIUM 8.7 MG/DL (8.5-10.1); CHLORIDE 101 MMOL/L (99-107); CREATININE 1.36 MG/DL (0.60-1.10); GLUCOSE 128 MG/DL (70-104); MAGNESIUM 1.9 MG/DL (1.5-2.4); POTASSIUM 4.5 MMOL/L (3.5-5.1); SODIUM 138 MMOL/L (135-145); TOTAL CARBON DIOXIDE 27.6 MMOL/L (24-32); eGFR 50 ML/MIN
[2021-11-16] MEDS: docusate sod 100mg capsule PO SCH ×2 (08:00→20:00)
[2021-11-16] MEDS: HYDROchlorothiazide 25mg tablet PO SCH (08:00)
[2021-11-16] MEDS: losartan 50mg tablet PO SCH (08:00)
[2021-11-16] MEDS: K and/or MAG REPLACEMENT MC SCH ×2 (08:00→20:00)
[2021-11-16] MEDS: furosemide 20 MG/2 ML vial IV SCH ×2 (08:20→20:00)
--- NOTE | 2021-11-16 08:30 | NUR ---
pt refusing breakfast and PO meds at this time. states he does not want to do anything that might jeopardize him having surgery today.
[2021-11-16] MEDS: OMEGA-3/DHA/EPA/FISH OIL 1 EACH CAPSULE.DR PO SCH ×2 (10:17→20:30)
[2021-11-16] MEDS: pyridoxine 50mg tablet PO SCH (10:18)
[2021-11-16] MEDS: cholecalciferol (vitamin D3) 1,000 unit (25mcg) tablet PO SCH (10:21)
[2021-11-16] MEDS: clopidogrel 75mg tablet PO SCH (10:21)
[2021-11-16] MEDS: magnesium oxide 400mg tablet PO SCH (10:21)
[2021-11-16] MEDS: multivitamins, therapeutics tablet PO SCH (10:21)
--- NOTE | 2021-11-16 18:22 | NUR ---
Problems reprioritized. Patient report given, questions answered & plan of care reviewed with JO Bowen.
[2021-11-16] MEDS: atorvastatin 20mg tablet PO SCH (20:30)
[2021-11-16] MEDS: aspirin 81mg, enteric-coated 1 TAB TABLET.DR PO SCH (20:30)
[2021-11-17] VITALS (14 sets, daily range): BP systolic 85–123; BP diastolic 50–71
[2021-11-17] MEDS: DOBUTamine-DoBUTrex 500mg/D5W 250 ML IV SCH ×2 (04:20→19:42)
[2021-11-17 05:41] LABS: ISTAT Hct MIX 29 %PCV (42-52); ISTAT O2 SATURATION MIX VENOUS 49 % (60-80); ISTAT O2 SATURATION MIX VENOUS 83 % (60-80); ISTAT SOURCE BLNK
--- NOTE | 2021-11-17 06:21 | NUR ---
Patient in room PCU 3013. I have received report from JO Bowen and had the opportunity to ask questions and assume patient care.
[2021-11-17 06:41] LABS: ALBUMIN 3.5 G/DL (3.4-5.0); ANION GAP 10 (8-16); BLOOD UREA NITROGEN 30 MG/DL (7-18); BUN/CREATININE RATIO 21.6 (5.4-32.0); CALCIUM 8.9 MG/DL (8.5-10.1); CHLORIDE 95 MMOL/L (99-107); CREATININE 1.39 MG/DL (0.60-1.10); GLUCOSE 153 MG/DL (70-104); MAGNESIUM 2.1 MG/DL (1.5-2.4); POTASSIUM 4.2 MMOL/L (3.5-5.1); SODIUM 132 MMOL/L (135-145); TOTAL CARBON DIOXIDE 27.3 MMOL/L (24-32); eGFR 48 ML/MIN
[2021-11-17 07:17] LABS: BASOPHILS % (AUTO) 0.2 % (0-1); EOSINOPHILS % (AUTO) 0.2 % (0-6); HEMATOCRIT 31.2 % (42.0-52.0); HEMOGLOBIN 10.6 g/dl (14.0-17.9); LYMPHOCYTES # (AUTO) 0.7 X10'3 (1.1-4.8); LYMPHOCYTES % (AUTO) 5.9 % (21-51); MEAN CORPUSCULAR HEMOGLOBIN 29.8 PG (27.0-31.0); MEAN CORPUSCULAR VOLUME 87.6 FL (78-98); MEAN PLATELET VOLUME 6.8 FL (7.4-10.4); MONOCYTES # (AUTO) 0.9 X10'3 (0-0.9); MONOCYTES % (AUTO) 6.8 % (2-12); NEUTROPHILS # (AUTO) 11.1 X10'3 (1.8-7.7); NEUTROPHILS % (AUTO) 86.9 % (42-75); PLATELET COUNT 248 X10'3 (140-440); RED BLOOD COUNT 3.56 X10'6 (4.70-6.10); RED CELL DISTRIBUTION WIDTH 14.8 % (11.5-14.5); WHITE BLOOD COUNT 12.7 X10'3 (4.5-11.0)
[2021-11-17] MEDS: K and/or MAG REPLACEMENT MC SCH ×2 (08:00→20:00)
[2021-11-17] MEDS: cholecalciferol (vitamin D3) 1,000 unit (25mcg) tablet PO SCH (09:22)
[2021-11-17] MEDS: OMEGA-3/DHA/EPA/FISH OIL 1 EACH CAPSULE.DR PO SCH ×2 (09:23→21:37)
[2021-11-17] MEDS: magnesium oxide 400mg tablet PO SCH (09:23)
[2021-11-17] MEDS: losartan 50mg tablet PO SCH (09:23)
[2021-11-17] MEDS: HYDROchlorothiazide 25mg tablet PO SCH (09:23)
[2021-11-17] MEDS: multivitamins, therapeutics tablet PO SCH (09:24)
[2021-11-17] MEDS: furosemide 20 MG/2 ML vial IV SCH ×2 (09:24→20:00)
[2021-11-17] MEDS: clopidogrel 75mg tablet PO SCH (09:24)
[2021-11-17] MEDS: pyridoxine 50mg tablet PO SCH (09:24)
[2021-11-17] MEDS: docusate sod 100mg capsule PO SCH ×2 (09:26→21:37)
[2021-11-17] MEDS ORDERED: LORazepam 2 mg/ml vial IV ONE (11:05)
[2021-11-17] MEDS ORDERED: metoprolol tartrate 1mg/ml inj IV ONE (14:02)
--- NOTE | 2021-11-17 18:36 | NUR ---
Problems reprioritized. Patient report given, questions answered & plan of care reviewed with JO Weber and alicia Sanchez RN.
--- NOTE | 2021-11-17 18:52 | NUR ---
Patient in room PCU 3013. I have received report from Vangie OSORIO and had the opportunity to ask questions and assume patient care.
--- NOTE | 2021-11-17 18:52 | NUR ---
Patient in room PCU 3013. I have received report from Vangie and had the opportunity to ask questions and assume patient care.
[2021-11-17] MEDS: aspirin 81mg, enteric-coated 1 TAB TABLET.DR PO SCH (21:37)
[2021-11-17] MEDS: atorvastatin 20mg tablet PO SCH (21:37)
[2021-11-18] VITALS: BP 99/74
[2021-11-18 02:05] VITALS: BP 104/64
[2021-11-18 04:00] VITALS: BP 110/55
--- NOTE | 2021-11-18 06:42 | NUR ---
Problems reprioritized. Patient report given, questions answered & plan of care reviewed with Mabel OSORIO.
[2021-11-18 08:00] VITALS: BP 106/45
[2021-11-18 08:27] LABS: BASOPHILS % (AUTO) 0.2 % (0-1); EOSINOPHILS % (AUTO) 0 % (0-6); HEMATOCRIT 30.2 % (42.0-52.0); HEMOGLOBIN 10.2 g/dl (14.0-17.9); LYMPHOCYTES # (AUTO) 0.5 X10'3 (1.1-4.8); LYMPHOCYTES % (AUTO) 4.1 % (21-51); MEAN CORPUSCULAR HEMOGLOBIN 32.2 PG (27.0-31.0); MEAN CORPUSCULAR HGB CONC 33.8 g/dL (33.0-36.5); MEAN CORPUSCULAR VOLUME 95.3 FL (78-98); MEAN PLATELET VOLUME 6.7 FL (7.4-10.4); MONOCYTES # (AUTO) 0.8 X10'3 (0-0.9); MONOCYTES % (AUTO) 6.1 % (2-12); NEUTROPHILS # (AUTO) 11.9 X10'3 (1.8-7.7); NEUTROPHILS % (AUTO) 89.6 % (42-75); PLATELET COUNT 229 X10'3 (140-440); RED BLOOD COUNT 3.16 X10'6 (4.70-6.10); RED CELL DISTRIBUTION WIDTH 15.5 % (11.5-14.5); WHITE BLOOD COUNT 13.3 X10'3 (4.5-11.0)
[2021-11-18 08:38] LABS: ALBUMIN 3.5 G/DL (3.4-5.0); ANION GAP 17 (8-16); BLOOD UREA NITROGEN 46 MG/DL (7-18); BUN/CREATININE RATIO 18.8 (5.4-32.0); CALCIUM 8.9 MG/DL (8.5-10.1); CHLORIDE 92 MMOL/L (99-107); CREATININE 2.45 MG/DL (0.60-1.10); GLUCOSE 163 MG/DL (70-104); MAGNESIUM 2.3 MG/DL (1.5-2.4); POTASSIUM 4.6 MMOL/L (3.5-5.1); SODIUM 129 MMOL/L (135-145); TOTAL CARBON DIOXIDE 19.8 MMOL/L (24-32); eGFR 25 ML/MIN
[2021-11-18] MEDS: furosemide 20 MG/2 ML vial IV SCH (08:40)
[2021-11-18] MEDS: HYDROchlorothiazide 25mg tablet PO SCH (08:40)
[2021-11-18 08:45] VITALS: BP_SYST 106
[2021-11-18] MEDS: pyridoxine 50mg tablet PO SCH (08:45)
[2021-11-18] MEDS: losartan 50mg tablet PO SCH (08:45)
[2021-11-18] MEDS: magnesium oxide 400mg tablet PO SCH (08:45)
[2021-11-18] MEDS: clopidogrel 75mg tablet PO SCH (08:45)
[2021-11-18] MEDS: docusate sod 100mg capsule PO SCH (08:45)
[2021-11-18] MEDS: OMEGA-3/DHA/EPA/FISH OIL 1 EACH CAPSULE.DR PO SCH (08:45)
[2021-11-18] MEDS: multivitamins, therapeutics tablet PO SCH (08:45)
[2021-11-18] MEDS: cholecalciferol (vitamin D3) 1,000 unit (25mcg) tablet PO SCH (08:45)
--- NOTE | 2021-11-18 12:07 | NUR ---
patient appeared restless and agitated constantly pulling off his monitor, needed constant supervision and monitoring. . 1015 patient was sitting on side of bed, when suddenly he turned greyish color. patient was assisted back to bed . Patient was in asystole according to tele monitor. robert nazario was called. Critical care team worked on patient , but patient was unable to be resuscitated . Family was notified. . Dr dye present and Dr tobin present.
--- NOTE | 2021-11-18 12:49 | NUR ---
[employer] network notified, ruth ann notified in [place] awaiting family
--- NOTE | 2021-11-18 16:25 | NUR ---
patient picked up by Anoop [id number]
== END 2021-11-18 14:20 ==
LOC: ER 10:15 → ED HOLD 14:15 → PCU 3S 23:55
PROVIDERS: ADMIT Family Medicine; ATTEND Family Medicine
PROC: 4A023N8 Measurement of Cardiac Sampling and Pressure, Bilateral, Percutaneous Approach (ICD-10-PCS; principal; 2021-11-15)
PROC: B2111ZZ Fluoroscopy of Multiple Coronary Arteries using Low Osmolar Contrast (ICD-10-PCS; 2021-11-15)
PROC: B2151ZZ Fluoroscopy of Left Heart using Low Osmolar Contrast (ICD-10-PCS; 2021-11-15)
PROC: B3101ZZ Fluoroscopy of Thoracic Aorta using Low Osmolar Contrast (ICD-10-PCS; 2021-11-15)
PROC: B32T1ZZ Computerized Tomography (CT Scan) of Left Pulmonary Artery using Low Osmolar Contrast (ICD-10-PCS; 2021-11-17)
PROC: B3201ZZ Computerized Tomography (CT Scan) of Thoracic Aorta using Low Osmolar Contrast (ICD-10-PCS; 2021-11-17)
PROC: B32S1ZZ Computerized Tomography (CT Scan) of Right Pulmonary Artery using Low Osmolar Contrast (ICD-10-PCS; 2021-11-17)
DX: I25.10 Atherosclerotic heart disease of native coronary artery without angina pectoris (principal); I21.A1 Myocardial infarction type 2; I46.9 Cardiac arrest, cause unspecified; I50.23 Acute on chronic systolic (congestive) heart failure; N17.0 Acute kidney failure with tubular necrosis; I11.0 Hypertensive heart disease with heart failure; Z20.822 Contact with and (suspected) exposure to COVID-19; I35.0 Nonrheumatic aortic (valve) stenosis; E78.00 Pure hypercholesterolemia, unspecified; M19.90 Unspecified osteoarthritis, unspecified site; I73.9 Peripheral vascular disease, unspecified; J44.9 Chronic obstructive pulmonary disease, unspecified; Z79.02 Long term (current) use of antithrombotics/antiplatelets; Z79.82 Long term (current) use of aspirin; Z80.8 Family history of malignant neoplasm of other organs or systems; Z87.891 Personal history of nicotine dependence; Z95.5 Presence of coronary angioplasty implant and graft; Z88.2 Allergy status to sulfonamides; Z88.8 Allergy status to other drugs, medicaments and biological substances; Z90.49 Acquired absence of other specified parts of digestive tract; Z79.899 Other long term (current) drug therapy
CPT/HCPCS: 36410; 36415; 71045; 71275; 74174; 76937; 80048; 80053; 82803; 83735; 83880; 84484; 85014; 85025; 85379; 87081; 93005; 93306; 93460; 93880; 94010; 94760; 94799; 99152; 99153; 99285; A4615; A4620; A4649; A6209; A6258; A6446; A6449; C1751; C1760; C1769; C1894; G0378; J1170; J1250; J1644; J1940; J2060; J2250; J3010; J3490; Q9967